=== PATIENT | female | born 1985 | race African-American/Black ===

== ENCOUNTER → 2020-08-17 13:04 | Outpatient (CLI) | payer OTHER, SELFPAY | PROVIDERS: Visit Provider Obstetrics & Gynecology | DX: Z36.85 Encounter for antenatal screening for Streptococcus B (principal) | CPT/HCPCS: 87081 ==

== ENCOUNTER → 2020-09-12 09:01 | Outpatient (CLI) | payer OTHER, SELFPAY | PROVIDERS: Referring Provider Obstetrics & Gynecology; Visit Provider Obstetrics & Gynecology | DX: Z03.818 Encounter for observation for suspected exposure to other biological agents ruled out (principal) | CPT/HCPCS: 87426; C9803 ==

== ENCOUNTER 2020-09-14 09:40 | Inpatient (IN) | payer OTHER, SELFPAY ==
[2020-09-14] VITALS (14 sets, daily range): BP systolic 82–107; BP diastolic 44–78; PULSE 66–103; RESP 14–18; TEMP 35.9–36.8; O2SAT 98–100; BMI 30.1
[2020-09-14] MEDS: Lactated Ringers 1,000 ML 999 ML IV (10:15)
[2020-09-14] MEDS: Acetaminophen 500 MG Tablet 1000 MG PO ×2 (10:23→17:19)
[2020-09-14 10:44] LABS: Absolute Lymphocyte Count 2.07 X10^3/uL (0.83-4.51); Absolute Neutrophil Count 5.4 X10^3/uL (2.0-7.7); Basophil# 0.04 X10^3/uL; Basophil% 0.5 % (0-1); Eosinophil# 0.06 X10^3/uL; Eosinophils% 0.7 % (0-5); Hematocrit 42.4 % (37-47); Hemoglobin 13.8 g/dL (12.0-15.0); Lymphocyte # 2.07 X10^3/ul (0.83-4.51); Lymphocyte % 25.3 % (19-41); Mean Corp Hgb Conc 32.5 g/dL (32-36); Mean Corpuscular Hgb 31.2 pg (27.0-32.0); Mean Corpuscular Volume 95.7 fL (81-99); Mean Platelet Vol. 11.3 fl (6.2-12.0); Monocyte# 0.47 X10^3/uL; Monocyte% 5.7 % (0-10); NRBC Flagged by Analyzer 0 % (0-5); Neutrophil # 5.44 X10^3/uL (2.7-7.7); Neutrophil % 66.6 % (47-70); Platelet Count 143 K/mm3 (150-450); RBC Distribution Width CV 13.7 % (11.6-14.6); RBC Distribution Width SD 48.4 fl (35.1-43.9); Red Blood Count 4.43 M/mm3 (4.2-5.4); White Blood Count 8.2 K/mm3 (4.4-11.0)
[2020-09-14] MEDS: Lactated Ringers 1,000 ML 150 ML IV (11:09)
--- NOTE | 2020-09-14 11:26 | PCM.HP.OB ---
HPI - General General Date of Admission: 09/14/20 HPI Narrative GABRIELLA PATTON, is a 35 F who presents at 40 2/7 weeks gestation for scheduled repeat section. Maternal Data Information BO Calculator Estimated Delivery Date Method Current WG Current Estimate 09/12/20 Manual 40w 2d [facility] Medical History (Updated 09/14/20 @ 11:[address] Rosa Manriquez MD) depression Home Medications calcium carb,[id number] D3 tab PO 09/14/20 [History Last Taken 08/31/20] vit-iron fum-folic ac [] tab PO 09/14/20 [History Last Taken 09/12/20] vitamin B complex 1 tab PO DAILY 09/14/20 [History Last Taken Unknown] Allergy/AdvReac Type Severity Reaction Status Date / Time No Known Allergies Allergy Verified 09/14/20 10:03 Surgical History History of gynecologic surgery Previous section Social History Smoking Status: Never smoker History 5 Elective abortions 3 Hx Para 1 Spontaneous abortions 0 Hx # Term Pregnancies 1 Ectopic pregnancies 0 Hx # Pregnancies 0 Multiple births 0 # of living children Addt'l History: Vital Signs Vital Signs Vital Signs: 09/14/20 11:06 Temperature 97.7 F L Temperature Source Temporal Pulse Rate 103 H Respiratory Rate 15 Blood Pressure 104/53 L Blood Pressure Mean 70 Blood Pressure Source Monitor Blood Pressure Position Semi-Fowlers Blood Pressure Location Left Arm Pulse Ox 100 Oxygen Delivery Method Room Air Weight Weight: 77.111 kg Body Mass Index (BMI) 30.1 Physical Exam Const alert, oriented x3 and no apparent distress HEENT normocephalic Resp normal respiratory effort, normal air movement and clear to auscultation bilaterally Cardio regular rate and regular rhythm GI normal to inspection, nondistended, normoactive bowel sounds, soft to palpation, non-tender and non-distended GI Narrative: heart tones present Inspection: gravid Labs Labs Labs: Blood Type A POSITIVE Antibody Screen NEGATIVE Hct 42.4 % (37-47) Hgb 13.8 g/dL (12.0-15.0) ACOG ANTEPARTUM RECORD - HISTORY AND PHYSICAL (09/14/2020) Name: ARCENIO PATTON History of this : This is a 35 year old [id number] presents at 40 wks + 2 days gestation. OB Physician: Rosa Manriquez MD [place]'s Physician: VIGNESH ...................................................................... : 1985 Age: 35 Address: [address] [place] [address] [place], [place] [address] Phone: (h) [phone] ([phone] Insurance Carrier: LUCIA [id number] Emergency Contact: KAMRAN HESS/ [phone] ...................................................................... Final BO: 09/12/20 By Ultrasound: PARITY: (G-Total Pregnancies P-Fullterm,Premature,Induced AB,Spont AB, Ectopics, Multiple,Living) BO CONFIRMATION: By LMP: 12/14/19 Final BO: 09/12/20 OB PROBLEM LIST: Had genetic testing in [place]. AA May be interested in TOLAC. PCS for NRFHR. Cord around left foot tight. Transfer of care from [place]. Moving to [place] after baby's for [employer]'s job. 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 Place of - [place] Hours Worked - off for summer Spouse-Sig Other Name - Kamran Hess Spouse-Sig Other Occupation - [employer] Spouse-Sig Other Phone No - [phone] [facility] MOM- [phone] Children Name(s) - Mitul 2 1/2y. 3 step kids - 5,6,8 years old. PRIOR DELIVERY HISTORY DEL DATE GEST LAB WT LB WT OZ TYPE ANES LABOR TX Mar 07 5 0 0 0 Tab General No Mar 08 5 0 0 0 Tab General No Mar 09 5 0 0 0 Vag Epidural No Nov 17 39 20 7 4 C-Sec Epidural No ANTEPARTUM FLOW CHART VISIT GE RTC FU F F SD U U DATE WK MD WKS HT PN HR M SS BP ED WT SD GL D EF ST __ ____ ___ __ __ ___ __ __ __ ___ __ __ __ ___ __ 13 Aug SHM 1 36 V + + 104/80 0 173 - - 08 Aug SHM 1 36 V + + 90/56 0 174 tr - 2 60 -3 30 Jul 38 CM 1 38 V + + 98/70 0 171 ne ne 1 50 -3 25 Jul JM 1 37 V + + 112/68 sl 171 tr - 18 Jul SHM 1 34 V + + 110/58 0 169 tr - 1 50 -4 ANTEPARTUM NOTE(S): Sep 11 2020: consents signed Sep 06 2020: uncomfortable and annoyed Aug 29 2020: Aug 24 2020: Low Pressure,Good FM Aug 17 2020: see note COMPREHENSIVE ANTEPARTUM NOTE(S): Sep 11 2020: Arcenio is here for a PNV/ preop. Good FM. No edema present. Occasional ctx's/ cramping. C/S consents reviewed and signed. Covid testing ordered. Ensure given. MK Sep 11 2020: Discussed section r/b/i/a, anticipated hospitalization. Consents signed and reviewed. Also discussed PPBC further including sterilization versus LARC. Pt ultimately still plans IUD at 6 weeks. Sep 06 2020: US ZIA 13.3cm, CEPHALIC. Pt requests move up to next week instead of the week after. Will try. Membranes stripped today. Desires IUD at 6 week visit. Aug 29 2020: Arcenio is here for PNV. Having good FM but has noticed a change. More rolling now. No ctx noticed but is having lower abdominal pain and pressure. No LOF or vaginal discharge. No edema noted today. says he has noticed Arcenio breathing louder but she states she does not feel short of breath. No complaints today. Would like cervix check. Urine neg/neg. LSS Aug 29 2020: 38/0w visit. Feeling tired and uncomfortable. Reassured rolling and pushing is wnl for FM. Kick counts as needed. Discussed normal changes and physiology of . F/u 1w. CM Aug 24 2020: 37wk, GBS negative. Late transfer of care from [place]. Pt desires natrual but if does not go into labor 09/17/20 will proceed with repeat c/s. Pt keloids, considering control considering IUD. Educated pt on r/b/a of IUD. Still considering. JM Aug 21 2020: H taken to OB. tkg Aug 21 2020: GBS neg Aug 17 2020: Arcenio is here as a transfer of care at 36 weeks. She had her son by C/S for cord wrapped tightly around L foot. She is interested in discussing a vs a R C/S. She would like to have a if it is safe for her to do so. She had 2 healthy pregnancies with no other complications. No GDM or HTN complicating . She asks about Covid vaccine and advised ok to have now or . Either is fine. Asking which is preferred, MRNA vaccine? Declines LARC, GBS will be done today. Reviewed FM, SROM, labor. Will discuss risk/benefits of all further with Dr SUH. Would like to meet all doctors who could deliver baby, so plans to meet Dr Duncan and Dr Jericho Richards. LMT Aug 17 2020: Arcenio is here with her mother Liliam. History reviewed, OB LEX from [place]. She is staying with her mom in town until her move to [place]. Her will arrive to [place] later this summer. Discussed r/b COVID19 vaccination in vs. . r/ TOLAC/ vs. scheduled C/S vs. emergency C/S. Discussed timing of scheduled delivery. Following discussion, will schedule repeat C/S for end of 40 weeks with plan for if spontaneous labor ensues. Labor, ROM, FM precautions. GBS obtained. Pt indicates her BPs usually run low and requests vigilance in reviewing her BPs should elevation occur including SBPs to 120s to reduce morbidity, mortality. Aug 14 2020: TELEHEALTH NOB-- Arcenio is a 35 yo G 5 P 1 transfer from [place] planning either a or RCS at [facility] using Dr Nye for post disch care and to breastfeed. After the they are moving to [place] where her , Kamran has a new position with the [employer] in Logistics. 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 They have a blended family of her 2 1/2 yo son, Mitul and his three children ages 5, 6 and 8 y. The was unexpected- they were talking sterilization. They're ok with it now but the timing is not optimal. They're in [place] with her parents for now. Arcenio has NKAD. She does not drink alcohol, denies street drug use and Quit smoking about 5 y ago. Her diet is balanced w occ coffee and 4 cups of water daily. Enc to increase water intake. She is active with her family. Arcenio has had genetic testing which was normal. Warning signs in pg discussed as well as reaching this office after hours, wearing seatbelt low on her abd and lifting restriction of 25# w understanding voiced. She has had US and labs drawn in [place]. Last pap was 12-01-2019. [facility] [employer] website video tour recommended. Has visit 08-17-20 and will receive office info. She has the What to Expect melodie on her phone. She has questions re when to get her COVID19 immunization- referred to Dr SUH. Enc to call w any concerns. Visit took 50 minutes. Chon. REVIEW OF SYSTEMS: GENERAL - Denies fever, or chills SKIN - Denies rash, new skin lesions, or change in moles EYES - Denies blurred vision, or change in visual acuity EARS - Denies ear pain, or difficulty hearing NOSE - Denies nasal congestion, discharge, or bleeding MOUTH - Denies sore throat, or difficulty swallowing NECK - Denies pain or swelling RESPIRATORY - Denies shortness of breath, cough, wheezing CARDIOVASCULAR - Denies palpitations, chest pain, orthopnea, PND, peripheral edema, syncope or claudication GASTROINTESTINAL - Denies nausea, vomiting, diarrhea, constipation, Denies abdominal pain, melena and or bright red blood GENITOURINARY - Denies dysuria, frequency of urination, urgency, or hesitancy MUSCULOSKELETAL - Denies joint or muscle pain, or back pain NEUROLOGICAL - Denies localized numbness, weakness, or tingling PSYCHIATRIC - Denies depression, anxiety, substance abuse or suicide attempts ENDOCRINE - Denies heat or cold intolerance, weight loss or gain, increasing thirst HEMATO-IMMUNOLOGIC - Denies easy bruising, bleeding, oral ulcerations or recurrent infections GENETICS SCREENING: Age 35+ years: No Thalassemia: No Neural Tube Defect: No Down Syndrome: No KARYNA-SACHS: No Sickle Cell Disease: No Hemophilia: No Musc. Dystrophy: No Cystic Fibrosis: No-declines screening [place] Chorea: No Mental Retardation: No Fragile X: No Other genetic: No Other defects: No SABs/still births: No Drugs since LMP: No INFECTION HISTORY: High risk AIDS: No High risk Hepatitis: No Exposed to TB: No Exposed to Herpes: No Rash/viral illness since LMP: No History of STD: Chlamydia 8 y ago MENSTRUAL HISTORY: *Menses Amount/Duration: 3-5 DAYSFrequency: 26-29Menarche (Age Onset): 15* PAST SUMMARY: PARITY: 1. Total Pregnancies............ 5 2. Full Term Pregnancies........ 1 3. Premature.................... 0 4. Abortions - Induced.......... 3 5. Abortions - Spontaneous...... 0 6. Ectopics..................... 0 7. Multiple Births.............. 0 8. Living Children.............. 1 PAST #1: Date of :.................. 03/02/05 Gestation Weeks:................ 5 Length of labor(hours):......... 0 Sex:............................ UNKNOWN Weight-lbs:............... 0 Weight-oz:................ 0 Type of Delivery:............... Tab Type of Anesthesia:............. General Place of Delivery:.............. [place] Treatment of Labor?:.... No Comment: D AND C PAST #2: Date of :.................. 03/02/06 Gestation Weeks:................ 5 Length of labor(hours):......... 0 Sex:............................ UNKNOWN Weight-lbs:............... 0 Weight-oz:................ 0 Type of Delivery:............... Tab Type of Anesthesia:............. General Place of Delivery:.............. [place] Treatment of Labor?:.... No Comment: D AND C PAST #3: Date of :.................. 03/02/07 Gestation Weeks:................ 5 Length of labor(hours):......... 0 Sex:............................ UNKNOWN Weight-lbs:............... 0 Weight-oz:................ 0 Type of Delivery:............... Vag Type of Anesthesia:............. Epidural Place of Delivery:.............. [place] Treatment of Labor?:.... No Comment: D AND C PAST #4: Date of :.................. 11/21/17 Gestation Weeks:................ 39 Length of labor(hours):......... 20 Sex:............................ M Weight-lbs:............... 7 Weight-oz:................ 4 Type of Delivery:............... C-Sect Type of Anesthesia:............. Epidural Place of Delivery:.............. [place] Treatment of Labor?:.... No Comment: CORD AROUND FOOT Impression /Plan: 40 wks + 2 days intrauterine . Preparations in progress for delivery. Assessment & Plan (1) 40 weeks gestation of : PLAN: Repeat section as scheduled Consents previously signed, reviewed
[2020-09-14] MEDS: Sodium Citrate/Citric Acid 30 ML UDC PO (11:36)
[2020-09-14] MEDS: Cefazolin 2 GM in 0.9% Normal Saline 100 ML IV (12:06)
[2020-09-14] MEDS: Ketorolac 30 MG/ML Syringe IV ×2 (13:15→20:25)
[2020-09-14] MEDS: Triamcinolone Acetonide 40 MG/ML Vial IM (13:16)
--- NOTE | 2020-09-14 13:24 | EX.PCM.OBRPT ---
Assessment & Plan (1) Delivery by section: (2) 40 weeks gestation of : Maternal Data Information BO Calculator Estimated Delivery Date Method Current WG Current Estimate 09/12/20 Manual 40w 2d Details Operative Information Date of Procedure: 09/14/20 Pre-Operative Diagnosis: 1. 40 2/7 weeks gestation 2. Previous section Post-Operative Diagnosis: 1. 40-2/7 weeks gestation 2. Previous section Indications for : Repeat Elective Indications Narrative: 35-year-old 5 para 1-0-3-1 admitted at 40-2/7 weeks gestational age for scheduled section. She had desired a trial of labor if she entered spontaneous labor prior to her due date, however labor did not ensue. Procedural risks, benefits, indications and alternatives were reviewed. Patient desired to proceed. Classification: Scheduled Procedure Type: low transverse getter welder #1: Pamela Oleary Type of Anesthesia: Spinal Anesthesiologist: Timothy Eastman Antibiotic Given: Ancef 2 grams IV x1 Drain: Rodriguez to straight drain Estimated Blood Loss: 800 ml Fluids Replaced: 1400 ml Findings Description of Procedure: Procedures performed: 1. Repeat low transverse section 2. Scar revision The patient was taken to the operating room and spinal analgesia was administered. She is placed in a dorsal supine position with left lateral tilt. The perineum and abdomen were prepped and draped in sterile fashion. And the spinal was found to be adequate. A Pfannenstiel incision was made using a scalpel and brought down to incise the subcutaneous tissue and rectus fascia at the midline. Subcutaneous tissue was bluntly dissected off the fascia laterally. The fascial incision was dissected laterally and cephalad using curved Santizo scissors. The superior leaflet of the rectus fascia was grasped using Marcus clamps and bluntly dissected and sharply dissected from the underlying rectus muscle. In a similar fashion the inferior rectus fascia was dissected from the underlying muscle. The rectus muscles were bluntly at the midline. The peritoneum was identified and entered [sharply]. The bladder blade was placed into the abdomen and the vesicouterine peritoneal fold identified. The fold was incised and a bladder flap created. Bladder blade was then repositioned to the abdomen. A low transverse hysterotomy was made using the [Metzenbaum scissors] to level of the membranes. The hysterotomy was extended bluntly cephalad and caudad. The membranes were then ruptured revealing clear fluid. The head was elevated and brought to the level of the hysterotomy and the infant delivered revealing vigorous [male] infant. The cord was doubly clamped and cut after 30 seconds. The infant was passed to awaiting [nursery personnel]. The placenta was [expressed] from the uterus and appeared intact on inspection. The uterus was cleared of debris. The hysterotomy was then repaired using 0 Vicryl running lock suture. A second imbricating layer was also placed for additional hemostasis. The bladder blade was removed. The anterior cul-de-sac was cleared of debris. The peritoneum and rectus muscles were reapproximated using 2-0 Vicryl running suture. The rectus fascia was closed using 0 strata fix. Allis clamps were used to grasp the superior leaflet of the incision where there was prior keloid formation. The keloid was excised using a scalpel. The skin was reapproximated using 4-0 Monocryl subcuticularly by the STREETCAR OPERATOR. I subsequently injected 10 mg of Kenalog diluted in normal saline subcutaneously. Mepilex occlusive dressing was placed over the incision. The fundus was firm. The patient was then transferred to the recovery room without complication. Sponge, instrument, and needle counts were correct ?2. Presentation: Positive for Vertex Amniotic Membrane Rupture Type: Artificial Amniotic Fluid Description: Clear Placental Delivery Description: Expressed Placenta Disposition: [facility] Cord Vessel Description: 3 Vessels Cord Entanglement: None Nuchal Cord Compression: Without compression A Gender: Female (1 minute): 8 (5 minute): 9 Delayed Cord Clamping: Yes Complications Risks of Surgery Discussed w/Patient: Bleeding, Anesthesia Risks, Infection, Injury to surrounding structure(s) including bowel and bladder and - (VTE, hemorrhage, placenta accreta spectrum disorder, scarring)
[2020-09-14] MEDS: Oxytocin 30 units/NS 500 ml 30 UNITS/500 ML IV.SOLN 167 UNITS IV (13:35)
[2020-09-14] MEDS: Lactated Ringers 1,000 ML 100 ML IV (15:55)
[2020-09-14] MEDS: Ondansetron 4 MG/2 ML Vial IV (15:55)
[2020-09-14] MEDS: proCHLORPERazine 10 MG/2 ML Vial IV (17:19)
--- NOTE | 2020-09-14 18:30 | PCM.DC ---
Discharge Instructions Diet Discharge Diet: No restrictions Activity Discharge Activity: Return to Normal Activity and May Shower May resume sexual activity in: 4-6 weeks Lifting Restrictions: 10lb Dressing / Incision Call your doctor if your incision/area has: Continuous Slow Oozing, Sudden Increased Bleeding, Increased Pain/ Swelling, Increased Redness, Foul Smelling Discharge and Swelling at the incision site Call your doctor if you observe: Fever of 101 or Higher, Using more than 1 pad per hour, Shortness of breath, Chest pain, Calf discomfort, Uncontrolled pain and - (Persistent or severe headache) Suture Line Care: Avoid Pulling/Pushing Remove Dressing in: 4 days Cleanse incision/area with: Soap & Water Follow Up Care Please Follow Up With: Rosa Martinez MD When: 1-2 weeks for incision check 6 weeks for visit Test Results: Test results from this visit will be discussed in further detail at your follow-up appointment, if applicable. Discharge Plan Admission Admit Date/Time: 09/14/20 09:40 Primary Reason for Your Visit: section Attending Provider: Rosa Martinez Primary Care Provider: Care PhysicianCriss Primary Instructions Patient Instructions: After a , Understanding Depression Discharge Orders/Prescriptions Prescriptions: New ibuprofen 600 mg Tablet 800 mg PO Q8H PRN PRN (Reason: pain) 7 Days Qty: 30 RF: 0 oxycodone 5 mg capsule 5 mg PO Q6H PRN (Reason: pain (scale score 7-10)) 7 Days Qty: 20 RF: 0 Continued vit-iron fum-folic ac 60-0.8 mg Tablet PO RF: 0 vitamin B complex Tablet 1 tab PO DAILY RF: 0 calcium carb,[id number] D3 500-250-200 mg-mg-unit Tablet PO RF: 0 Referrals / Follow Up: Care Physician,No Primary [Primary Care Provider] - Disposition Disposition (needs filled in before D/C Order can be placed): Home, Self Care
[2020-09-15 00:49] VITALS: BP 93/45; PULSE 66; RESP 18; O2SAT 97
[2020-09-15] MEDS: Acetaminophen 500 MG Tablet 1000 MG PO ×4 (01:02→18:08)
[2020-09-15] MEDS: Ketorolac 30 MG/ML Syringe IV ×2 (03:21→09:05)
[2020-09-15 04:21] VITALS: BP 91/46; PULSE 66; RESP 16; TEMP 36.3
[2020-09-15 05:39] LABS: Hematocrit 37.3 % (37-47); Hemoglobin 12.6 g/dL (12.0-15.0); Mean Corp Hgb Conc 33.8 g/dL (32-36); Mean Corpuscular Hgb 31.6 pg (27.0-32.0); Mean Corpuscular Volume 93.5 fL (81-99); Mean Platelet Vol. 11.2 fl (6.2-12.0); Platelet Count 136 K/mm3 (150-450); RBC Distribution Width CV 13.4 % (11.6-14.6); RBC Distribution Width SD 46.1 fl (35.1-43.9); Red Blood Count 3.99 M/mm3 (4.2-5.4); White Blood Count 11.8 K/mm3 (4.4-11.0)
[2020-09-15 08:56] VITALS: BP 82/43; PULSE 70; RESP 16; TEMP 36.6; O2SAT 97
[2020-09-15] MEDS: 0.9% Saline Lock 10 ML Syringe IV (09:05)
--- NOTE | 2020-09-15 10:22 | PN.OBGYN_ITS ---
Subjective Subjective Doing well. She is sore, pain is manageable. Out of bed, ambulating without difficulty. Voiding without difficulty. No flatus or bowel movement yet. Nausea and vomiting from yesterday resolved. Tolerates clear liquids in order to regular diet for breakfast this morning. Denies heavy lochia. Nursing is going well. Objective Data Objective Data Vital Signs: Vital Signs Temp Pulse Resp BP Pulse Ox 97.8 F 70 16 82/43 L 97 09/15/20 08:56 09/15/20 08:56 09/15/20 08:56 09/15/20 08:56 09/15/20 08:56 Oxygen Delivery Method Room Air Weight: 77.111 kg Body Mass Index (BMI) 30.1 Intake & Output: Intake and Output for Last 24 Hours 09/13/20 09/14/20 09/15/20 23:59 23:59 23:59 Intake Total 1644.05 / 1644.05 910 / 910 Output Total 1250 / 1250 1400 / 1400 Balance 394.05 / 394.05 -490 / -490 Lab / Micro Data Result Diagrams: 09/15/20 05:30 Labs: Laboratory Results - last 24 hr 09/14/20 10:15: WBC 8.2, RBC 4.43, Hgb 13.8, Hct 42.4, MCV 95.7, MCH 31.2, MCHC 32.5, RDW Std Deviation 48.4 H, RDW Coeff of Peggy 13.7, Plt Count 143 L, MPV 11.3, Immature Gran % (Auto) 1.200 H, Neut % (Auto) 66.6, Lymph % (Auto) 25.3, Jennings % (Auto) 5.7, Eos % (Auto) 0.7, Baso % (Auto) 0.5, Absolute Neuts (auto) 5.4, Absolute Lymphs (auto) 2.07, Nucleated RBC % 0 09/14/20 10:15: Blood Type A POSITIVE, Antibody Screen NEGATIVE 09/15/20 05:30: WBC 11.8 H, RBC 3.99 L, Hgb 12.6, Hct 37.3, MCV 93.5, MCH 31.6, MCHC 33.8, RDW Std Deviation 46.1 H, RDW Coeff of Peggy 13.4, Plt Count 136 L, MPV 11.2 Physical Exam Const alert, oriented x3 and no apparent distress Resp normal respiratory effort, normal air movement and clear to auscultation bilaterally Cardio regular rate, regular rhythm, S1 normal heart sound and S2 normal heart sound GI normal to inspection, nondistended, normoactive bowel sounds, soft to palpation, non-tender and non-distended GI Narrative: Incisional dressing dry, there is an approximately 2-1/2 cm circular area of saturation from yesterday evening that is demarcated with a pen with no expansion. Manual OB Exam: other lochia scant Uterus Palpation: uterus fundus firm Extremity no calf tenderness Assessment & Plan (1) Delivery by section: COMMENT: day #1 status post repeat low transverse section PLAN: Postop nausea and vomiting resolved Rh+, rubella immune Routine postoperative care Breast-feeding Plan for DC tomorrow
[2020-09-15] MEDS: Prenatal Vits Tablet 1 TABLET PO (11:32)
[2020-09-15] MEDS: Senna/Docusate Sodium 1 Tablet PO (11:32)
[2020-09-15 14:52] VITALS: BP 90/48; PULSE 71; RESP 16; TEMP 36.7; O2SAT 99
[2020-09-15] MEDS: Ibuprofen 600 MG Tablet PO ×2 (15:28→21:29)
[2020-09-15 20:00] VITALS: BP 101/63; PULSE 77; RESP 18; TEMP 36.8
--- NOTE | 2020-09-15 21:05 | CM.ED ---
SW Note Mother: Roel Mi G5 Now Para 2 PNC: [facility] in [place] in January [address] Rosa Manriquez in [place]. Control: Patient plans to have the IUD inserted at 6-8 weeks. SW went into the room and patient was the . Patient appeared happy and content with the . Patient was educated on the purpose of the assessment. Patient had stated, during the assessment, that she is never an excited person as that is her personality. Patient did appear to be bonding appropriately with the . : Brooke BEAR 09/14/20 Apgars 8/9 Weigh 6 lbs 10 ounces Peditrician: Dr. Amena Nye Patient plans to breast and then pump with the . She does not plan to use formula. Patient's other children: Patient has a 2 1/2 year old son, Mitul, who is with patient's parents currently. Patient said that she and her have a blended family and he has 3 children ages 5,6,8 years of age. Patient explained that they had lived in [place] as her was in the . 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 Patient said that they own a house in [place] so they have been moving. Patient said that her did not want her to assist with the moving so she came to [place], to be with her parents. Patient said that she will be in [place] for a few weeks. Patient said that her flew back to [place] today. Housing: Patient will go to her parents house, with the , and stay with her parents for a couple of weeks until she feels better and then will go to their home in [place]. Transportation: Patient said that she has a vehicle and is able to drive Supplies: Patient reports that she has a pack and play with firm mattress and all the necessary supplies including clothes, diapers etc. Supports: Patient said that her supports include her , friends, and a prayer partner that she plays with weekly Education: Patient graduated from and has obtained her undergraduate, graduate and PHD. Patient went to college at [employer] and [employer]. Patient has a PHD in Health Education. No learning issues or delays Employment: Patient is current not employed. 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 Patient said that all last year she taught remotely. Patient works at [employer]. Patient said that she wants to work remotely and be at home for the first year of the newborns life. FOB: Kamran Time Together: 1 year. Patient said it's a young relationship Involved at : Yes Kamran will be involved per patient. Staff said that Kamran was very appropriate and interactive with the and patient. Employment: Kamran was employed at [employer] but he resigned as he wanted a career that was more family friendly. Kamran is looking for employment in the business sector. FOB DV/Mental Health/ Domestic Violence History: Patient reports no history with FOB Maternal MH History: Patient reports she thinks she may have had post in the past, following the of her son. Patient reports no medication or counseling . She reports she obtained support from a on line group. Patient reports no medication in the past. Patient reports no psychiatric hospitalization. Patient reports no current SI/HI. Patient said that she would dream, during this and the first pregnacy, about her children being safe from harm and her ability to protect the children. Patient said that she felt she could not get sleep due to the dreams regarding her children and their safety. Patient said that following the the of her son she had suicidal thoughts but the thoughts were related to her dreams and denied any plan regarding suicide. Patient said that after the of her son she was also sleep deprived, going through a divorce and working on my PHD and thus her life situation was different than her current situation. Patient reports she does not want to have medication and feels that as her life situation has changed so will her response to the post period be different. Again, patient denied any current SI/HI. SW was educated on PPD. Patient was educated that if she is in crisis she can call the OB, go to the ED and this senior medical writer also provided her with information on IOP/PHP on [facility] Behavioral Health. SW administered the [place] depression scale and patient scored a 10 which is possible depression. Patient denied any alcohol or drug use. Patient was educated on post depression, shaking baby syndrome and safe sleeping. Patient was also presented information on Depression During and after , Depression and difference between PPD and baby blues , Depression and anxiety, Back to Sleep, Help Me Grow and 10 facts about Depression and Post . SW also reviewed patient can return to ED, contact [facility] Behavioral Health or her [employer] if experiencing any difficulty during the post period. Patient voices she has no concerns regarding her post period. Patient verbalized she plans to read information provided to her. SW spoke to RN who indicated patient was bonding appropriately and appeared to be doing well with the . Plan: Home with [place]. Jazzy MONTIEL
[2020-09-16] MEDS: Acetaminophen 500 MG Tablet 1000 MG PO ×2 (00:17→06:06)
[2020-09-16 02:53] VITALS: BP 96/49; PULSE 77; RESP 18; TEMP 36.1
[2020-09-16] MEDS: Ibuprofen 600 MG Tablet PO ×2 (02:57→08:39)
[2020-09-16 08:30] VITALS: BP 104/52; PULSE 69; RESP 16; TEMP 36.7; O2SAT 97
--- NOTE | 2020-09-16 08:51 | PCM.PN.OB ---
Subjective Subjective Patient was painful overnight. Pain is improved today after using more Tylenol with ibuprofen. She has not yet used the oxycodone. She is passing flatus. No bowel movement yet. Continues nursing. Reports lochia lightening. Reports some wetness noted along incisional dressing yesterday but feels confident there was little to no expansion of blood along the dressing. Objective Data Objective Data Vital Signs: Vital Signs Temp Pulse Resp BP Pulse Ox 98.0 F 69 16 104/52 L 97 09/16/20 08:30 09/16/20 08:30 09/16/20 08:30 09/16/20 08:30 09/16/20 08:30 Oxygen Delivery Method Room Air Weight: 77.111 kg Body Mass Index (BMI) 30.1 Intake & Output: Intake and Output for Last 24 Hours 09/14/20 09/15/20 09/16/20 23:59 23:59 23:59 Intake Total 1644.05 / 1644.05 910 / 910 Output Total 1250 / 1250 1400 / 1400 Balance 394.05 / 394.05 -490 / -490 Lab / Micro Data Result Diagrams: 09/15/20 05:30 Physical Exam Const alert, oriented x3 and no apparent distress Resp normal respiratory effort, normal air movement and clear to auscultation bilaterally Cardio regular rate, regular rhythm, S1 normal heart sound and S2 normal heart sound GI normal to inspection, nondistended, normoactive bowel sounds, soft to palpation, non-tender and non-distended GI Narrative: Incisional dressing unchanged from prior with approximately 2 and half centimeter circular area of saturation. Manual OB Exam: other lochia scant Uterus Palpation: uterus fundus firm Extremity no calf tenderness Assessment & Plan (1) Delivery by section: COMMENT: day #1 status post repeat low transverse section PLAN: A positive, rubella immune Routine postop care Breast-feeding Plan for DC today
--- NOTE | 2020-09-16 08:54 | DS.PCM_ITS ---
Providers Date of Admission: 09/14/20 Primary Care Physician: Criss Primary Care Phys Reason For Visit: REPEAT Diagnosis Discharge Diagnosis (1) Delivery by section: Status: Acute Medications at Discharge Home Medications calcium carb,[id number] D3 tab PO 09/14/20 ibuprofen 800 mg PO Q8H PRN PRN 7 Days #30 tab 09/14/20 oxycodone 5 mg PO Q6H PRN 7 Days #20 cap 09/14/20 vit-iron fum-folic ac tab PO 09/14/20 vitamin B complex 1 tab PO DAILY 09/14/20 Hospital Course Operations section Summary of Care Provided Hospital Course: 35-year-old 5 para 1031 admitted at 40-2/7 weeks gestational age for scheduled repeat section. She had previously planned a TOLAC had she not gone into labor by this time. Her surgery was uncomplicated. She was out of bed, ambulating, passing flatus, tolerating p.o. and voiding without difficulty during her hospitalization. She is breast- feeding. She was discharged to home on postoperative day #2. Weight / BMI Weight Weight: 77.111 kg Body Mass Index (BMI) 30.1 ABG / Lab / Microbiology Data Result Diagrams: 09/15/20 05:30 D/C Instructions Discharge Diet: No restrictions May resume sexual activity in: 4-6 weeks Call your doctor if your incision/area has: Continuous Slow Oozing, Sudden Increased Bleeding, Increased Pain/ Swelling, Increased Redness, Foul Smelling Discharge and Swelling at the incision site Call your doctor if you observe: Fever of 101 or Higher, Using more than 1 pad per hour, Shortness of breath, Chest pain, Calf discomfort, Uncontrolled pain and - (Persistent or severe headache) Suture Line Care: Avoid Pulling/Pushing Cleanse incision/area with: Soap & Water Please Follow Up With: Rosa Martinez MD When: 1-2 weeks for incision check 6 weeks for visit Meaningful Use Info Meaningful Use Diagnoses (Choose all that apply): None applicable Discharge Plan Admission Admit Date/Time: 09/14/20 09:40 Primary Reason for Your Visit: section Attending Provider: Rosa Martinez Primary Care Provider: Care Physician,No Primary Instructions Patient Instructions: After a , Understanding Depression Discharge Orders/Prescriptions Prescriptions: New ibuprofen 600 mg Tablet 800 mg PO Q8H PRN PRN (Reason: pain) 7 Days Qty: 30 RF: 0 oxycodone 5 mg capsule 5 mg PO Q6H PRN (Reason: pain (scale score 7-10)) 7 Days Qty: 20 RF: 0 Continued vit-iron fum-folic ac 60-0.8 mg Tablet PO RF: 0 vitamin B complex Tablet 1 tab PO DAILY RF: 0 calcium carb,[id number] D3 500-250-200 mg-mg-unit Tablet PO RF: 0 Referrals / Follow Up: Care Physician,No Primary [Primary Care Provider] - Disposition Disposition (needs filled in before D/C Order can be placed): Home, Self Care
[2020-09-16] MEDS: Senna/Docusate Sodium 1 Tablet PO (10:29)
== END 2020-09-16 11:10 | disposition home or self-care (01) | DRG 788 ==
PROVIDERS: Admitting Provider Obstetrics & Gynecology; Visit Provider Obstetrics & Gynecology
PROC: 10D00Z1 Extraction of Products of Conception, Low, Open Approach (ICD-10-PCS; CPT 59514; principal; 2020-09-14 11:45)
DX: O34.211 Maternal care for low transverse scar from previous cesarean delivery (principal); Z37.0 Single live birth; Z3A.40 40 weeks gestation of pregnancy; L91.0 Hypertrophic scar; O99.72 Diseases of the skin and subcutaneous tissue complicating childbirth
CPT/HCPCS: 85025; 85027; 86850; 86900; 86901; 99218; 99251; J7120; A4216; G0378; G0463; J2405